=== PATIENT | female | born 1965 | race Caucasian/White ===

== ENCOUNTER 2018-02-02 15:46 | Emergency (ER) | payer OTHER | END 2018-02-02 16:30 | disposition home or self-care (01) | LOC: E/R 16:30 | DX: H92.01 Otalgia, right ear (principal); I10 Essential (primary) hypertension; Z79.82 Long term (current) use of aspirin; Z79.84 Long term (current) use of oral hypoglycemic drugs | CPT/HCPCS: 99283; Z7502 ==

== ENCOUNTER 2019-05-12 01:18 | Emergency (ER) | payer OTHER ==
[2019-05-12] MEDS: FAMOTIDINE 20 MG TAB PO (02:16)
[2019-05-12] MEDS: ONDANSETRON (ODT) 4 MG TAB ODT (02:16)
[2019-05-12] MEDS: DIPHENHYDRAMINE 50 MG INJ IM (02:17)
[2019-05-12] MEDS: DEXAMETHASONE 10 MG/ML 1 ML INJ IM (02:17)
== END 2019-05-12 03:00 | disposition home or self-care (01) ==
LOC: FTE 01:18
DX: L50.0 Allergic urticaria (principal); I10 Essential (primary) hypertension; Z79.82 Long term (current) use of aspirin; Z79.84 Long term (current) use of oral hypoglycemic drugs
CPT/HCPCS: 96372; 99284-25

== ENCOUNTER 2019-05-13 14:37 | Emergency (ER) | payer OTHER ==
[2019-05-13] MEDS: SOD CHLORIDE 0.9% 1,000 ML IV (15:03)
[2019-05-13] MEDS: FAMOTIDINE 20 MG INJ IV (15:03)
[2019-05-13] MEDS: METHYLPREDNISOLONE 125 MG INJ IV (15:03)
== END 2019-05-13 16:18 | disposition home or self-care (01) ==
LOC: FTE 14:37
DX: L50.9 Urticaria, unspecified (principal); I10 Essential (primary) hypertension; Z79.82 Long term (current) use of aspirin; Z79.84 Long term (current) use of oral hypoglycemic drugs
CPT/HCPCS: 96361; 96374; 96375; 99284-25; J2930

== ENCOUNTER 2019-06-07 01:04 | Emergency (ER) | payer OTHER ==
[2019-06-07] MEDS: ADENOSINE 6 MG INJ IV ×2 (01:21→01:25)
[2019-06-07] MEDS: SOD CHLORIDE 0.9% 1,000 ML IV (01:21)
[2019-06-07 01:23] LABS: ADD MAN DIFF? NO
[2019-06-07 01:27] LABS: BASOPHILS % 0.4 % (0.0-2.0); EOSINOPHILS # 0.1 10^3/ul (0.0-0.5); EOSINOPHILS % 1.5 % (0.0-7.0); HEMATOCRIT 43.1 % (37.0-47.0); HEMOGLOBIN 14.6 g/dl (12.0-16.0); LYMPHOCYTES # 2.6 10^3/ul (0.8-2.9); LYMPHOCYTES % 39.6 % (15.0-51.0); MEAN CORPUSCULAR HEMOGLOBIN 28.7 pg (29.0-33.0); MEAN CORPUSCULAR HGB CONC 33.9 g/dl (32.0-37.0); MEAN CORPUSCULAR VOLUME 84.8 fl (82.0-101.0); MONOCYTE # 0.4 10^3/ul (0.3-0.9); MONOCYTES % 5.7 % (0.0-11.0); NEUTROPHIL # 3.5 10^3/ul (1.6-7.5); NEUTROPHILS % 52.5 % (39.0-77.0); PLATELET COUNT 259 10^3/UL (140-415); RED BLOOD COUNT 5.08 10^6/ul (4.20-5.40); RED CELL DISTRIBUTION WIDTH 12.1 % (11.5-14.5)
[2019-06-07 01:27] LABS: WHITE BLOOD COUNT 6.7 10^3/ul (4.8-10.8)
[2019-06-07] MEDS: MAGNESIUM SULFATE 2 GM/50 ML 50 ML IVPB (01:31)
[2019-06-07 01:48] LABS: ANION GAP 12 (5-13); BLOOD UREA NITROGEN 17 mg/dl (7-20); CALCIUM 9.8 mg/dl (8.4-10.2); CARBON DIOXIDE 24 mmol/L (21-31); CHLORIDE 100 mmol/L (97-110); CREATININE 0.56 mg/dl (0.44-1.00); Estimated GFR > 60 mL/min (>60); POTASSIUM 3.8 mmol/L (3.5-5.1); SODIUM 136 mmol/L (135-144)
[2019-06-07 01:57] LABS: GLUCOSE 428 mg/dl (70-220)
[2019-06-07 02:22] LABS: TROPONIN-I < 0.012 ng/ml (0.000-0.120)
[2019-06-07] MEDS ORDERED: ADENOSINE 3 MG/ML SYRINGE IV (07:00)
[2019-06-07] MEDS ORDERED: CA CHLORIDE 10% 10 ML SYRINGE (07:00)
== END 2019-06-07 03:10 | disposition home or self-care (01) ==
LOC: E/R 01:04
DX: I47.1 Supraventricular tachycardia (principal); E11.65 Type 2 diabetes mellitus with hyperglycemia; I10 Essential (primary) hypertension; Z79.84 Long term (current) use of oral hypoglycemic drugs; Z79.82 Long term (current) use of aspirin
CPT/HCPCS: 36415; 71045; 80048; 82962; 83735; 84484; 85025; 93005; 96374; 96375; 99285-25